=== PATIENT | female | born 1985 | race Two or more races ===

== ENCOUNTER → 2023-02-15 | Outpatient (CLI) | payer OTHER | END | disposition home or self-care (01) | LOC: LABWHC1 14:39 | PROVIDERS: ATTEND Surgery Plastic and Reconstructive Surgery | DX: Z53.9 Procedure and treatment not carried out, unspecified reason (principal) ==

== ENCOUNTER → 2023-02-15 | Outpatient (CLI) | payer OTHER ==
[2023-02-15 14:16] VITALS: BP 143/89; PULSE 108; TEMP 98.4; BMI 68.5
--- NOTE | 2023-02-15 14:28 | P.HPBAR ---
Bariatric H&P - History & Physicial H&P Date: 02/15/23 History & Physicial: Visit/CC: new patient Patient initial contact: Initial weight: Initial weight in pounds: Height: 5 ft 4.5 in Initial BMI: Last weight: Current weight: 184.159 kg Current weight in pounds: 406.00 Current BMI: 68.5 [place] body weight (based on NIH guidelines): 55.565 kg Excess body weight loss: The patient is a 37 year-old F who presents for Bariatric Assessment. She is looking into the sleeve. She has tried keto and lost 50 pounds. She gained 100 pounds after. She has not tried prescription for weight loss. Parents has trouble with weight. No GI malignancies. No moderate heartburn. She still has her gallbaldder. No previods abdominal surgery. No abdominal pain. No change in bowel habits. No food allergies. No food intolerances. No prior blood clots. Her sister had blood clots. No IBD in the family. No dysphagia. She had back surgery for complessed deisk in 2016. No hip pain. She has both knee pain. She has snoring. She has not been checked for sleep apnea. No prior EGDs. She has low vitamin D. Medical supervised weight loss of 3 months per insurance. Past Medical History Past Medical History: Hypertension History of Any Multi-Drug Resistant Organisms: None Reported Past Surgical History: Back Surgery Additional Past Surgical History / Comment(s): back surgery for compressed disc 2016, wisdom teeth Past Anesthesia/Blood Transfusion Reactions: No Reported Reaction Past Psychological History: Depression Smoking Status: Former smoker Past Alcohol Use History: Occasional Past Drug Use History: Marijuana Additional Drug Use History / Comment(s): occasional recreational smokes marijuana/gummies Surgical - Exam Vital Signs Temp Pulse BP 98.4 F 108 H 143/89 02/15/23 14:04 02/15/23 14:04 02/15/23 14:04 Bariatric Checklist Checklist: Plan: Checklist: EGD: 1. Hiatal hernia: 2. H. Pylori: HgbA1c: Vitamin D: Smoking: Primary care physician referral: PROCUREMENT ENGINEER at Dr. Tavera office Psychiatry clearance: Cardiology clearance: Sleep study: Diet journal: VTE risk score: VTE risk level: Rehab needs at discharge:
[2023-02-15 16:32] LABS: INR 0.9 (<1.2); Partial Thromboplastin Time 24.4 sec (22.0-30.0)
[2023-02-15 22:42] LABS: HCT 44.5 % (37.2-46.3); HGB 13.2 g/dL (12.0-15.0); MCH 25.8 pg (27.0-32.0); MCHC 29.7 g/dL (32.0-37.0); MCV 86.9 fL (80.0-97.0); Mean Platelet Volume 11.2 fL (9.5-12.2); NRBC Per 100 WBC 0 /100 WBCS (0.0-0.0); Platelet Count 285 X 10*3/uL (140-440); RBC 5.12 X 10*6/uL (4.10-5.20); RDW 13.7 % (11.5-14.5); WBC 9.75 X 10*3/uL (4.50-10.00)
[2023-02-16 04:03] LABS: % Iron Saturation 11.75 (12.00-45.00); ALT 22 U/L (8-44); AST 21 U/L (13-35); African American GFR (CKD) 130.8 (60.0-200.0); Albumin 4.2 g/dL (3.8-4.9); Albumin/Globulin Ratio 1.62 (1.60-3.17); Alkaline Phosphatase 75 U/L (41-126); BUN/Creat Ratio 29.88 Ratio (12.00-20.00); Blood Urea Nitrogen 19.3 mg/dL (9.0-27.0); Calcium 9.8 mg/dL (8.7-10.3); Chloride 105 mmol/L (96-109); Ferritin 63.4 ng/mL (10.0-291.0); Globulin 2.6 g/dL (1.6-3.3); Glucose 94 mg/dL (70-110); Iron 47 ug/dL (50-170); Magnesium 1.9 mg/dL (1.5-2.4); Non-African American GFR(CKD) 112.9 (60.0-200.0); Phosphorus 4.2 mg/dL (2.4-5.1); Potassium 4.5 mmol/L (3.5-5.5); Sodium 143 mmol/L (135-145); Total Bilirubin <0.15 mg/dL (0.30-1.20); Total Iron Binding Capacity 398 ug/dL (228-460); Total Protein 6.8 g/dL (6.2-8.2)
[2023-02-16 05:19] LABS: Chol/HDL Ratio 3.96 Ratio; LDL Cholesterol,Calculated 96.5 mg/dL (0.0-131.0); Prealbumin 26.6 mg/dL (18.0-42.0)
[2023-02-17 07:26] LABS: Zinc, Serum 67 ug/dL (60-130)
== END ==
LOC: BARWHC3 13:26
PROVIDERS: ATTEND Surgery Plastic and Reconstructive Surgery
DX: E66.01 Morbid (severe) obesity due to excess calories (principal); I10 Essential (primary) hypertension; Z87.891 Personal history of nicotine dependence; Z68.44 Body mass index [BMI] 60.0-69.9, adult
CPT/HCPCS: 84255; 84134; 84425; 80061; 80053; 82607; 82728; 82525; 82746; 83540; 83550; 83735; 84100; 84443; 84590; 84630; 85027; 85610; 85730; 82306; 83970; 83036; 93005; G0463; 99202

== ENCOUNTER → 2023-04-03 | Day surgery (SDC) | payer OTHER ==
[2023-03-30 15:33] VITALS: BMI 67.5
[~2023-04-03] MED LIST: GLYCOPYRROLATE 0.2 MG/ML 2 ML VIAL ONE; KETAMINE 10 MG/ML 20 ML VIAL ONE; LACTATED RINGERS 1,000 ML IV SCH; LIDOCAINE 1% (10MG/ML) FOR IV START INTRADERMA PRN; LIDOCAINE 2% INJ 20 MG/ML (2 ML VIAL) ONE; PROPOFOL 10 MG/ML 20 ML VIAL IV ONE
[2023-04-03 07:29] VITALS: TEMP 97.6
--- NOTE | 2023-04-03 07:33 | P.GSHP ---
History of Present Illness H&P Date: 04/03/23 CHIEF COMPLAINT: GERD HISTORY OF PRESENT ILLNESS: The patient is a 37-year-old female who presents reports gastroesophageal reflux disease. Upper endoscopy was offered for further evaluation and management. PAST MEDICAL HISTORY: Please see list. PAST SURGICAL HISTORY: Please see list. MEDICATIONS: Please see list. ALLERGIES: Please see list. SOCIAL HISTORY: No illicit drug use FAMILY HISTORY: No reports of Crohn disease or ulcerative colitis. REVIEW OF ORGAN SYSTEMS: CONSTITUTIONAL: No reports of fevers or chills. GI: Denies any blood in stools or constipation. PHYSICAL EXAM: VITAL SIGNS: Stable GENERAL: Well-developed and pleasant in no acute distress. HEENT: No scleral icterus. Extraocular movements grossly intact. Moist buccal mucosa. NECK: Supple without lymphadenopathy. CHEST: Unlabored respirations. Equal bilateral excursions. CARDIOVASCULAR: Regular rate and rhythm. Distal 2+ pulses. ABDOMEN: Soft, nondistended. MUSCULOSKELETAL: No clubbing, cyanosis, or edema. ASSESSMENT: 1. Gastroesophageal reflux disease PLAN: 1. Recommend proceeding with an upper endoscopy Past Medical History Past Medical History: Hypertension Additional Past Medical History / Comment(s): reflux History of Any Multi-Drug Resistant Organisms: None Reported Past Surgical History: Back Surgery Additional Past Surgical History / Comment(s): back surgery for compressed disc 2016, wisdom teeth Past Anesthesia/Blood Transfusion Reactions: No Reported Reaction Smoking Status: Former smoker - Past Family History Mother Family Medical History: Cancer Sister(s) Family Medical History: Deep Vein Thrombosis (DVT) Medications and Allergies Home Medications Medication Instructions Recorded Confirmed Type Lisinopril-Hctz 10-12.5 mg 1 tab PO DAILY 03/30/23 04/03/23 History [Zestoretic 10-12.5] Allergies Allergy/AdvReac Type Severity Reaction Status Date / Time No Known Allergies Allergy Verified 04/03/23 07:25 Surgical - Exam Vital Signs Temp Pulse Resp BP Pulse Ox 97.6 F 108 H 16 175/84 97 04/03/23 07:28 04/03/23 07:28 04/03/23 07:28 04/03/23 07:28 04/03/23 07:28
[2023-04-03 08:04] VITALS: BP 154/84; PULSE 98; RESP 17
--- NOTE | 2023-04-03 08:04 | P.PCN ---
Date of Procedure: 04/03/23 Description of Procedure: PREOPERATIVE DIAGNOSIS: Gastroesophageal reflux disease. Morbid obesity. POSTOPERATIVE DIAGNOSIS: Gastroesophageal reflux disease. Morbid obesity. Gastritis. Diaphragmatic hiatal hernia OPERATION: Esophagogastroduodenoscopy with biopsies along antrum and duodenum SURGEON: Esther Fraser MD ANESTHESIA: MAC. INDICATIONS: The patient is a 37-year-old female who presents with reflux disease. Benefits and risks of the procedure were described. Informed consent was obtained. DESCRIPTION: The patient was brought into the endoscopy suite and laid in the left lateral decubitus position. An Olympus gastroscope was passed along the posterior oropharynx down to the distal esophagus where the squamocolumnar junction was encountered at 39 cm from the incisors. The stomach was entered and no bile reflux was found. Additional findings are listed below. Biopsies with cold fo rceps were obtained of the antrum. The first through third portion of the duodenum was examined. Retroflexion of the scope confirmed Hill grade 3 lower esophageal valve. The squamocolumnar junction demonstrated LA grade B erosive esophagitis. The stomach was desufflated. The patient tolerated the procedure well. FINDINGS: Squamocolumnar junction 39 cm from the incisors. Diaphragmatic hiatus at 40 cm. Hiatal hernia, 1 cm Hill grade 2 lower esophageal valve. LA grade B erosive esophagitis. Biopsies obtained of the duodenum. Chronic gastritis with biopsies obtained. RECOMMENDATIONS: Upper endoscopy as needed. Plan - Discharge Summary Discharge Rx Participant: Yes New Discharge Prescriptions: New Omeprazole [PriLOSEC] 40 mg PO DAILY #14 cap Continue Lisinopril-Hctz 10-12.5 mg [Zestoretic 10-12.5] 1 tab PO DAILY Discharge Medication List Lisinopril-Hctz 10-12.5 mg [Zestoretic 10-12.5] 1 tab PO DAILY 03/30/23 [History] Omeprazole [PriLOSEC] 40 mg PO DAILY #14 cap 04/03/23 [Rx] Follow up [facility]ment(s[facility]Ref[facility] [place] [facility] - [facility] Patient Instructions/Handouts: *Surgery [facility] - (Anesthesia) Discharge Instructions Outpatient Surgery, Gastritis (DC) Discharge Disposition: HOME SELF-CARE
== END | disposition home or self-care (01) ==
LOC: ORWHC2ENDO 06:54
PROVIDERS: ATTEND Surgery Plastic and Reconstructive Surgery
DX: K21.00 Gastro-esophageal reflux disease with esophagitis, without bleeding (principal); K29.50 Unspecified chronic gastritis without bleeding; K44.9 Diaphragmatic hernia without obstruction or gangrene; K31.9 Disease of stomach and duodenum, unspecified; I10 Essential (primary) hypertension; K21.9 Gastro-esophageal reflux disease without esophagitis; E66.01 Morbid (severe) obesity due to excess calories; Z87.891 Personal history of nicotine dependence; Z79.899 Other long term (current) drug therapy
CPT/HCPCS: 81025; 88305; 43239; J2704; J2001

== ENCOUNTER → 2023-05-08 | Outpatient (CLI) | payer OTHER ==
[2023-05-08 11:30] VITALS: BMI 67.4
== END ==
LOC: BARWHC3 08:58
PROVIDERS: ATTEND Surgery Plastic and Reconstructive Surgery
DX: E66.01 Morbid (severe) obesity due to excess calories (principal); Z68.44 Body mass index [BMI] 60.0-69.9, adult; Z71.3 Dietary counseling and surveillance
CPT/HCPCS: 97804